=== PATIENT | female | born 2000 | race Two or more races ===

== ENCOUNTER 2024-12-21 19:20 | Emergency (ER) | payer OTHER ==
[~2024-12-21] VITALS: Ht 154.9 cm; Wt 49.9 kg
[2024-12-21 20:19] LABS: HEMATOCRIT 31.1 % (36.0-45.00); HEMOGLOBIN 10.7 g/dL (12.0-15.00); MEAN CELL VOLUME 84.4 fL (80.00-100.00); MEAN CORPUSCULAR HGB CONC 34.4 g/dl (32.0-36.0); PLATELET COUNT 314 K/uL (150-450); RED BLOOD COUNT 3.68 M/uL (4.00-6.00); RED CELL DISTRIBUTION WIDTH 14.3 % (11.5-14.5)
[2024-12-21 20:25] LABS: URINE APPEARANCE Clear; URINE BILIRRUBIN Negative (NEGATIVE); URINE BLOOD Negative; URINE COLOR Yellow; URINE GLUCOSE Negative (NEGATIVE); URINE KETONE Negative (NEGATIVE); URINE LEUKOCYTE Negative; URINE NITRATE Negative; URINE PROTEIN Negative (NEGATIVE); URINE UROBILINOGEN 0.2 E.U./dl
[2024-12-21 20:28] LABS: URINE BACTERIA 669.4 uL (0.0-1933); URINE EPITHELIAL CELLS 26.2 uL (0.0-38.8); URINE WBC 12.1 uL (0.0-23.2)
[2024-12-21 21:01] LABS: CALCIUM 8.6 mg/dL (8.5-10.1); CREATININE SERUM 0.68 mg/dL (0.55-1.02); GFR 108.2; POTASSIUM 3.59 mEq/L (3.5-5.1)
== END 2024-12-21 22:24 | disposition home or self-care (01) ==
LOC: ER 19:23
PROVIDERS: General Practice
DX: O26.891 Other specified pregnancy related conditions, first trimester (principal); Z3A.01 Less than 8 weeks gestation of pregnancy; R10.2 Pelvic and perineal pain

== ENCOUNTER 2025-02-04 09:50 | Outpatient (CLI) | payer OTHER | END 2025-02-04 09:51 | disposition home or self-care (01) | LOC: PRENATAL 09:50 | PROVIDERS: ATTEND Obstetrics & Gynecology Maternal & Fetal Medicine | DX: O36.80X0 Pregnancy with inconclusive fetal viability, not applicable or unspecified (principal); Z36.82 Encounter for antenatal screening for nuchal translucency; Z14.8 Genetic carrier of other disease; Z3A.13 13 weeks gestation of pregnancy ==

== ENCOUNTER 2025-03-30 20:29 | Outpatient (CLI) | payer OTHER ==
[~2025-03-30] VITALS: Ht 154.9 cm; Wt 56.7 kg
[2025-03-30 19:35] VITALS: BP 99/63
[2025-03-30] MEDS ORDERED: RINGERS SOLUTION,LACTATED 1,000 ML IV SCH (21:00)
[2025-03-30] MEDS ORDERED: PRENATAL + DHA1 EAC1 PO (21:00)
[2025-03-30 21:52] LABS: PH,URINE 6.5 (5.0-8.0); URINE APPEARANCE Clear; URINE BILIRRUBIN Negative (NEGATIVE); URINE BLOOD Negative; URINE COLOR Yellow; URINE GLUCOSE Negative (NEGATIVE); URINE KETONE Negative (NEGATIVE); URINE LEUKOCYTE Negative; URINE NITRATE Negative; URINE PROTEIN Negative (NEGATIVE); URINE UROBILINOGEN 0.2 E.U./dl
[2025-03-30 21:53] LABS: BASO % 0.2 % (0.1-1.2); EOS # 0.64 (0.04-0.54); EOS % 5.4 % (0.7-7.0); HEMATOCRIT 29.9 % (34.1-44.9); HEMOGLOBIN 10.5 g/dL (11.2-15.7); LYMPH # 1.76 (1.18-3.74); LYMPH % 14.8 % (19.3-53.1); MEAN CORPUSCULAR HEMOGLOBIN 30.2 pg (25.6-32.2); MONO # 0.82 (0.24-0.82); MONO % 6.9 % (4.7-12.5); NEUT % 72.4 % (34.0-71.1); PLATELET COUNT 292 K/uL (163-369); RED BLOOD COUNT 3.48 M/uL (3.93-5.22); RED CELL DISTRIBUTION WIDTH 13.8 % (11.6-14.4)
[2025-03-30 21:56] LABS: URINE BACTERIA 118.5 uL (0.0-1933); URINE EPITHELIAL CELLS 11.1 uL (0.0-38.8); URINE WBC 4.5 uL (0.0-23.2)
[2025-03-30 22:02] LABS: URINE CAST 0.14 uL (0.0-1.40); URINE RBC 0.8 uL (0.0-20.8)
[2025-03-30 22:27] LABS: ALBUMIN 3.3 gm/dL (3.4-5.0); BILIRUBIN TOTAL 0.18 mg/dL (0.3-1.2); CALCIUM 9.2 mg/dL (8.5-10.1); CREATININE SERUM 0.4 mg/dL (0.55-1.02); GFR 199.59; GLOBULINA 3.3 G/DL (2.4-3.5); POTASSIUM 4.28 mEq/L (3.5-5.1); TOTAL PROTEIN 6.6 gm/dL (6.4-8.2)
[2025-03-30 23:16] VITALS: BP 94/57
[2025-03-31 03:13] VITALS: BP 86/45
[2025-03-31 07:06] VITALS: BP 90/60
[2025-03-31 10:43] VITALS: BP 90/60
== END 2025-03-31 10:43 | disposition home or self-care (01) ==
LOC: OBS/DEL 20:29
PROVIDERS: Specialist; ATTEND Obstetrics & Gynecology
DX: O26.892 Other specified pregnancy related conditions, second trimester (principal); Z3A.20 20 weeks gestation of pregnancy

== ENCOUNTER → 2025-03-30 | Emergency (ER) | payer OTHER ==
[~2025-03-30] MED LIST: PRENATAL + DHA1 EAC1 PO
== END | disposition left against medical advice (07) ==
LOC: ER 18:40
DX: Z53.21 Procedure and treatment not carried out due to patient leaving prior to being seen by health care provider (principal)

== ENCOUNTER 2025-04-10 11:39 | Outpatient (CLI) | payer OTHER | END 2025-04-10 11:43 | disposition home or self-care (01) | LOC: PRENATAL 11:39 | PROVIDERS: ATTEND Obstetrics & Gynecology Maternal & Fetal Medicine | DX: O44.00 Complete placenta previa NOS or without hemorrhage, unspecified trimester (principal); Z14.8 Genetic carrier of other disease; Z3A.22 22 weeks gestation of pregnancy ==

== ENCOUNTER 2025-06-05 12:35 | Outpatient (CLI) | payer OTHER | END 2025-06-05 12:39 | disposition home or self-care (01) | LOC: PRENATAL 12:35 | PROVIDERS: ATTEND Obstetrics & Gynecology Maternal & Fetal Medicine | DX: O26.849 Uterine size-date discrepancy, unspecified trimester (principal); O36.8199 Decreased fetal movements, unspecified trimester, other fetus; Z14.8 Genetic carrier of other disease; O32.9XX0 Maternal care for malpresentation of fetus, unspecified, not applicable or unspecified; O99.019 Anemia complicating pregnancy, unspecified trimester; O28.3 Abnormal ultrasonic finding on antenatal screening of mother; Z3A.31 31 weeks gestation of pregnancy ==

== ENCOUNTER → 2025-07-04 13:44 | Outpatient (CLI) | payer OTHER | END | disposition home or self-care (01) | LOC: PRENATAL 13:44 | PROVIDERS: ATTEND Obstetrics & Gynecology Maternal & Fetal Medicine | DX: O26.849 Uterine size-date discrepancy, unspecified trimester (principal); O36.8199 Decreased fetal movements, unspecified trimester, other fetus; Z14.8 Genetic carrier of other disease; Z3A.34 34 weeks gestation of pregnancy ==

== ENCOUNTER 2025-07-23 14:51 | Outpatient (CLI) | payer OTHER ==
[~2025-07-23] VITALS: Ht 154.9 cm; Wt 68.0 kg
[2025-07-23 14:14] VITALS: BP 106/64; BP 108/64
[2025-07-23 15:23] VITALS: BP 105/69
[2025-07-23] MEDS ORDERED: FOLIC ACID0.8 M1 PO (15:25)
[2025-07-23] MEDS ORDERED: RINGERS SOLUTION,LACTATED 1,000 ML IV SCH (15:30)
[2025-07-23 15:44] LABS: BASO % 0.2 % (0.1-1.2); EOS # 0.16 (0.04-0.54); EOS % 1.9 % (0.7-7.0); LYMPH # 1.30 (1.18-3.74); LYMPH % 15.5 % (19.3-53.1); MEAN PLATELET VOLUME 10.80 fl (9.4-12.4); MONO # 0.59 (0.24-0.82); MONO % 7.0 % (4.7-12.5); NEUT # 6.26 (1.56-6.13); NEUT % 74.9 % (34.0-71.1); RED CELL DISTRIBUTION WIDTH 13.3 % (11.6-14.4)
[2025-07-23 15:45] LABS: URINE APPEARANCE Clear; URINE BILIRRUBIN Negative (NEGATIVE); URINE BLOOD Negative; URINE COLOR Yellow; URINE GLUCOSE Negative (NEGATIVE); URINE KETONE Negative (NEGATIVE); URINE LEUKOCYTE Large; URINE NITRATE Negative; URINE PROTEIN Negative (NEGATIVE); URINE UROBILINOGEN 0.2 E.U./dl
[2025-07-23 15:48] LABS: URINE BACTERIA 2895.4 uL (0.0-1933); URINE EPITHELIAL CELLS 73.9 uL (0.0-38.8); URINE WBC 26.2 uL (0.0-23.2)
[2025-07-23 16:20] LABS: URINE CAST 0.14 uL (0.0-1.40); URINE RBC 1.1 uL (0.0-20.8)
[2025-07-23 18:20] VITALS: BP 105/69
== END 2025-07-23 18:41 | disposition home or self-care (01) ==
LOC: OBS/DEL 14:51
PROVIDERS: Obstetrics & Gynecology; ATTEND Obstetrics & Gynecology
DX: O23.43 Unspecified infection of urinary tract in pregnancy, third trimester (principal); N39.0 Urinary tract infection, site not specified; Z3A.36 36 weeks gestation of pregnancy

== ENCOUNTER 2025-07-30 15:30 | Inpatient (IN) | payer OTHER ==
[~2025-07-30] VITALS: Ht 154.9 cm; Wt 3.6 kg
[~2025-07-30 15:30] MED LIST changes: +FOLIC ACID0.8 M1 PO
[2025-08-17 01:11] VITALS: BP 118/74; BP 120/66
[2025-08-17] MEDS ORDERED: RINGERS SOLUTION,LACTATED 1,000 ML IV SCH (01:30)
[2025-08-17 03:30] VITALS: BP 109/61
[2025-08-17 07:11] VITALS: BP 102/55
[2025-08-17] MEDS ORDERED: OXYTOCIN 20 UNITS/500ML RL PIGGYBAG IV ONE (09:28)
[2025-08-17] MEDS ORDERED: OXYTOCIN 500 ML IV ONE (09:45)
[2025-08-17 11:16] VITALS: BP 117/78
[2025-08-17] MEDS ORDERED: MORPHINE SULFATE 4 MG/ML CARTRIDGE IV ONE (12:45)
[2025-08-17] MEDS ORDERED: CEFAZOLIN SODIUM 1,000 MG VIAL IV ONE (13:15)
[2025-08-17] MEDS ORDERED: ERYTHROMYCIN BASE OPHT 1GM EACH TUBE OP ONE ×2 (13:37→14:00)
[2025-08-17] MEDS ORDERED: OXYTOCIN 10 UNITS/ML VIAL ONE (13:37)
[2025-08-17] MEDS ORDERED: OXYTOCIN 10 UNITS/ML VIAL IV ONE (14:00)
[2025-08-17] MEDS ORDERED: MORPHINE SULFATE 4 MG/ML CARTRIDGE IV PRN (15:45)
[2025-08-17] MEDS ORDERED: ONDANSETRON HCL 2 MG/ML VIAL IV PRN (15:45)
[2025-08-17] MEDS ORDERED: DOCUSATE SODIUM 100MG CAP PO SCH (17:00)
[2025-08-17] MEDS ORDERED: CEFOXITIN SODIUM 1,000 MG in 0.9 % SODIUM CHLORIDE 50 ML IV SCH (17:00)
[2025-08-17] MEDS ORDERED: CEFOXITIN SODIUM 2,000 MG VIAL IV ONE ×2 (17:10→17:13)
[2025-08-17] MEDS ORDERED: OXYTOCIN 1,000 ML IV SCH (17:15)
[2025-08-17 17:58] VITALS: BP 106/67
[2025-08-17] MEDS ORDERED: ACETAMINOPHEN 325 MG TABLET PO SCH (18:00)
[2025-08-17] MEDS ORDERED: SIMETHICONE 125 MG CAPSULE PO SCH (18:00)
[2025-08-17] MEDS ORDERED: KETOROLAC TROMETHAMINE 30 MG VIAL IV SCH (18:00)
[2025-08-17 22:00] VITALS: BP 112/72
[2025-08-18 00:23] VITALS: BP 109/75
[2025-08-18 08:00] VITALS: BP 112/78
[2025-08-18 08:44] LABS: BASO % 0.2 % (0.1-1.2); EOS # 0.11 (0.04-0.54); EOS % 0.9 % (0.7-7.0); LYMPH # 1.88 (1.18-3.74); LYMPH % 15.8 % (19.3-53.1); MEAN PLATELET VOLUME 11.60 fl (9.4-12.4); MONO # 0.89 (0.24-0.82); MONO % 7.5 % (4.7-12.5); NEUT # 8.93 (1.56-6.13); NEUT % 75.3 % (34.0-71.1); RED CELL DISTRIBUTION WIDTH 13.2 % (11.6-14.4)
[2025-08-18] MEDS ORDERED: FERROUS SULFATE 325 MG TABLET.EC PO SCH (13:19)
[2025-08-18 13:23] VITALS: BP 105/73
[2025-08-18 16:04] VITALS: BP 100/68
[2025-08-19] VITALS: BP 96/61
[2025-08-19 08:10] VITALS: BP 104/69
[2025-08-19] MEDS ORDERED: IRON FUM,PS/FOLIC/BCOMP,C NO.9 1 CAP CAPSULE PO SCH (09:00)
[2025-08-19 16:16] VITALS: BP 103/65
[2025-08-19] MEDS ORDERED: COLACE100 MG PO (16:57)
[2025-08-19] MEDS ORDERED: IBU800 MG PO (16:58)
[2025-08-19] MEDS ORDERED: VITABEX IRON C1 EACH PO (16:58)
[2025-08-19] MEDS ORDERED: GAS-X125 MG PO (16:58)
== END 2025-08-19 17:17 | disposition home or self-care (01) | DRG 788 ==
LOC: OB/GYN 08-15 15:30 → LDR 08-17 01:15 → OB/GYN 08-17 16:30
PROVIDERS: ADMIT Obstetrics & Gynecology; ATTEND Obstetrics & Gynecology
PROC: 4A1HXCZ Monitoring of Products of Conception, Cardiac Rate, External Approach (ICD-10-PCS; 2025-08-17)
PROC: 10D00Z1 Extraction of Products of Conception, Low, Open Approach (ICD-10-PCS; principal; 2025-08-17 13:00)
DX: O82 Encounter for cesarean delivery without indication (principal); O62.1 Secondary uterine inertia; O64.0XX0 Obstructed labor due to incomplete rotation of fetal head, not applicable or unspecified; Z3A.40 40 weeks gestation of pregnancy; Z37.0 Single live birth

== ENCOUNTER 2025-08-16 20:14 | Outpatient (CLI) | payer OTHER ==
[2025-08-16 20:03] VITALS: BP 118/74
[2025-08-16 21:35] LABS: BASO % 0.3 % (0.1-1.2); EOS # 0.31 (0.04-0.54); EOS % 3.0 % (0.7-7.0); LYMPH # 1.70 (1.18-3.74); LYMPH % 16.7 % (19.3-53.1); MEAN PLATELET VOLUME 11.70 fl (9.4-12.4); MONO # 0.80 (0.24-0.82); MONO % 7.8 % (4.7-12.5); NEUT # 7.30 (1.56-6.13); NEUT % 71.6 % (34.0-71.1); RED CELL DISTRIBUTION WIDTH 13.2 % (11.6-14.4)
[2025-08-16 21:54] LABS: INR 0.95
[2025-08-16 23:12] VITALS: BP 120/66
== END 2025-08-17 01:11 | disposition still patient (30) ==
LOC: OBS/DEL 20:14
PROVIDERS: Obstetrics & Gynecology; ATTEND Obstetrics & Gynecology
DX: O26.893 Other specified pregnancy related conditions, third trimester (principal)